=== PATIENT | female | born 1995 | race Caucasian/White ===

== ENCOUNTER 2018-08-15 18:15 | Emergency (ER) | payer OTHER, MEDICAID ==
[~2018-08-15] VITALS: Ht 170.2 cm; Wt 90.7 kg
[~2018-08-15 18:15] MED LIST: ACETAMINOPHEN-1 EAC1 PO; BACTRIM DS TAB1 EACH PO; CEPHALEXIN 500500 M3 PO; CIPRO500 MG PO; CLEOCIN HCL300 MG PO; CYCLOBENZAPRINE5 MG PO; DIFLUCAN150 M1 PO; DIFLUCAN150 MG PO; FLAGYL500 MG; FLAGYL500 MG PO; FLEXERIL PO; HYDROCODON-ACE1 EAC7 PO; HYDROCODONE-AP1 EAC6 PO; IBUPROFEN 800800 M1 PO; KEFLEX500 MG PO; MACROBID 100 M100 M2 PO; NAPROSYN500 MG PO; NOHOMEMEDICATIONS; ONDANSETRON HCL4 M2 PO; OSELB75 PO; ROBAXIN 750 MG750 M1 PO; SEROQUEL 25 MG25 M1 PO; TRILEPTAL600 MG; ZOFRAN ODT4 MG PO
[2018-08-15] MEDS ORDERED: MELATONIN1 MG PO (18:24)
[2018-08-15] MEDS ORDERED: MINIPRESS1 MG PO (18:24)
[2018-08-15] MEDS ORDERED: PRENATAL PO (18:24)
[2018-08-15 18:37] LABS: URINE BLOOD 3+ (Negative); URINE CLARITY CLOUDY; URINE COLOR RED; URINE GLUCOSE-RANDOM NEGATIVE (Negative); URINE KETONES 2+ (Negative); URINE LEUKOCYTES-REFLEX TRACE (Negative); URINE PROTEIN 2+ (Negative); URINE SPECIFIC GRAVITY >= 1.030 (1.005-1.030); URINE UROBILINOGEN 0.2 E.U./dl (0.2-1.0)
[2018-08-15 18:40] LABS: URINE BILIRUBIN 1+ (Negative); URINE NITRITE-REFLEX POSITIVE (Negative)
[2018-08-15 18:41] LABS: ICTOTEST (BILI CONFIRMATORY) Negative (Negative); MUCUS 4-6 Moderate strn/LPF (None Seen); URINE RBC >20 Many /HPF (0-2)
[2018-08-15 18:42] LABS: CASTS None Seen /LPF (None Seen); SQUAMOUS >10 Many /LPF (0-3); URINE WBC-REFLEX 0-5 Rare /HPF (0-5)
[2018-08-15 18:43] LABS: BACTERIA-REFLEX 1-9 Few /HPF (None Seen); CRYSTALS None Seen /LPF (None Seen)
[2018-08-15 18:59] LABS: ABSOLUTE EOSINOPHILS 0.1 thou/uL (0.0-0.7); ABSOLUTE LYMPHOCYTES 2.2 thou/uL (0.8-5.3); ABSOLUTE MONOCYTES 0.7 thou/uL (0.0-1.2); ABSOLUTE NEUTROPHILS 6.2 thou/uL (1.6-8.1); BASOPHILS 0.3 %; EOSINOPHILS 1.3 %; HEMATOCRIT 40.8 % (37.0-47.0); HEMOGLOBIN 13.7 gm/dL (12.0-15.0); LYMPHOCYTES 23.6 %; MCH 28.6 pg (26.0-34.0); MCHC 33.6 g/dL (28.0-37.0); MCV 85.1 fL (80.0-100.0); MONOCYTES 7.2 %; MPV 7.5 fl. (7.2-11.1); NUCLEATED RBCS 0 /100WBC; PLATELET COUNT* 303 thou/uL (150-400); POLYS 67.6 %; RBC 4.79 mil/uL (4.20-5.00); RDW-CV 14.4 % (10.5-14.5); WBC 9.2 thou/uL (4.0-11.0)
[2018-08-15 19:11] LABS: CALCIUM 9.4 mg/dL (8.5-10.1); CREATININE 0.5 mg/dL (0.6-1.3); POTASSIUM 3.7 mmol/L (3.5-5.1)
[2018-08-15 19:16] LABS: ALBUMIN 4.1 g/dL (3.4-5.0); TOTAL BILIRUBIN 0.3 mg/dL (<0.1-1.0); TOTAL PROTEIN 7.9 g/dL (6.4-8.2)
[2018-08-15] MEDS ORDERED: ACETAMINOPHEN-1 EAC1 PO (21:14)
[2018-08-15] MEDS ORDERED: KEFLEX500 M1 PO (21:14)
[2018-08-15] MEDS ORDERED: ONDANSETRON HCL4 M2 PO (21:15)
[2018-08-15] MEDS ORDERED: PROMS25 WY RECTAL (21:15)
[2018-08-15 22:40] VITALS: BP 122/63
== END 2018-08-15 22:41 | disposition home or self-care (01) ==
LOC: M.ERS 18:15
PROVIDERS: Nurse Practitioner Family
DX: O23.41 Unspecified infection of urinary tract in pregnancy, first trimester (principal); Z3A.09 9 weeks gestation of pregnancy; F17.210 Nicotine dependence, cigarettes, uncomplicated

== ENCOUNTER 2018-11-22 20:01 | Emergency (ER) | payer OTHER, MEDICAID ==
[~2018-11-22] VITALS: Ht 167.6 cm; Wt 74.8 kg
[~2018-11-22 20:01] MED LIST changes: +KEFLEX500 M1 PO; +MELATONIN1 MG PO; +MINIPRESS1 MG PO; +PRENATAL PO; +PROMS25 WY RECTAL
[2018-11-22] MEDS ORDERED: VALTREX 500 MG500 M1 PO (20:23)
[2018-11-22 20:52] LABS: URINE BILIRUBIN NEGATIVE (Negative); URINE BLOOD NEGATIVE (Negative); URINE CLARITY CLEAR; URINE COLOR YELLOW; URINE GLUCOSE-RANDOM NEGATIVE (Negative); URINE LEUKOCYTES-REFLEX NEGATIVE (Negative); URINE NITRITE-REFLEX NEGATIVE (Negative); URINE PROTEIN TRACE (Negative); URINE SPECIFIC GRAVITY >= 1.030 (1.005-1.030); URINE UROBILINOGEN 0.2 E.U./dl (0.2-1.0)
[2018-11-22 20:54] LABS: URINE KETONES 3+ (Negative)
[2018-11-22 21:27] LABS: AMP/METHAMP Negative (Negative); BARBITURATES Negative (Negative); BENZODIAZEPINES Negative (Negative); COCAINE Negative (Negative); METHADONE Negative (Negative); OPIATES Negative (Negative); PCP Negative (Negative); THC Negative (Negative)
[2018-11-22] MEDS ORDERED: PHENERGAN 25 MG25 M1 PO (23:02)
[2018-11-22] MEDS ORDERED: NORCO 5-325 TA1 EACH PO (23:02)
[2018-11-22] MEDS ORDERED: PERIDEX 0.12%473 M1 SWISH&SPIT (23:03)
[2018-11-22 23:12] VITALS: BP 108/53
== END 2018-11-22 23:13 | disposition home or self-care (01) ==
LOC: M.ERS 20:01
PROVIDERS: Emergency Medicine
DX: S06.0X0A Concussion without loss of consciousness, initial encounter (principal); R42 Dizziness and giddiness; R11.2 Nausea with vomiting, unspecified; G89.29 Other chronic pain; M54.9 Dorsalgia, unspecified; F17.210 Nicotine dependence, cigarettes, uncomplicated; Y04.2XXA Assault by strike against or bumped into by another person, initial encounter; Y92.89 Other specified places as the place of occurrence of the external cause; Y93.89 Activity, other specified; Y99.8 Other external cause status

== ENCOUNTER 2019-05-31 02:51 | Emergency (ER) | payer OTHER, MEDICAID ==
[~2019-05-31] VITALS: Ht 167.6 cm; Wt 72.6 kg
[~2019-05-31 02:51] MED LIST changes: +NORCO 5-325 TA1 EACH PO; +PERIDEX 0.12%473 M1 SWISH&SPIT; +PHENERGAN 25 MG25 M1 PO; +VALTREX 500 MG500 M1 PO
[2019-05-31 04:08] VITALS: BP 127/91
== END 2019-05-31 04:09 ==
LOC: M.ERS 02:51
DX: S91.311A Laceration without foreign body, right foot, initial encounter (principal); F17.210 Nicotine dependence, cigarettes, uncomplicated; M54.9 Dorsalgia, unspecified; G89.29 Other chronic pain; W26.8XXA Contact with other sharp object(s), not elsewhere classified, initial encounter; Y92.89 Other specified places as the place of occurrence of the external cause; Y99.0 Civilian activity done for income or pay; Y99.8 Other external cause status

== ENCOUNTER 2021-02-11 11:29 | Emergency (ER) | payer BC, OTHER, MEDICAID ==
[~2021-02-11] VITALS: Ht 167.6 cm; Wt 90.7 kg
[2021-02-11 12:10] LABS: URINE BILIRUBIN NEGATIVE (Negative); URINE BLOOD NEGATIVE (Negative); URINE CLARITY CLEAR; URINE COLOR YELLOW; URINE GLUCOSE-RANDOM NEGATIVE (Negative); URINE KETONES NEGATIVE (Negative); URINE LEUKOCYTES-REFLEX NEGATIVE (Negative); URINE NITRITE-REFLEX NEGATIVE (Negative); URINE PROTEIN NEGATIVE (Negative); URINE UROBILINOGEN 0.2 E.U./dl (0.2-1.0)
[2021-02-11 13:02] VITALS: BP 118/78
== END 2021-02-11 13:04 | disposition left against medical advice (07) ==
LOC: M.ERS 11:29
PROVIDERS: Nurse Practitioner Family
DX: M54.5 Low back pain (principal); F17.210 Nicotine dependence, cigarettes, uncomplicated; Z85.42 Personal history of malignant neoplasm of other parts of uterus; Z85.89 Personal history of malignant neoplasm of other organs and systems